=== PATIENT | male | born 1980 | race Two or more races ===

== ENCOUNTER 2016-09-14 22:07 | Observation (INO) | payer SELFPAY ==
[2016-09-14 22:17] VITALS: RESP 18; TEMP 97.8
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
[2016-09-14] MEDS ORDERED: Multivitamin (MVI) 10 ML, Thiamine 100 MG, Folic Acid 1 MG in Sodium Chloride 0.9% 1,00... IV ONE (22:48)
[2016-09-14] MEDS ORDERED: DiphenhydrAMINE 50 mg/ml Inj ONE (23:03)
[2016-09-15 01:29] LABS: BASO # 0.02 K/mm3 (0.0-2.0); BASO % 0.2 % (0.0-3.0); EOS # 0.2 (0.0-0.7); EOS % 1.8 % (1.5-5.0); GRAN # 6.28 (1.4-6.5); GRAN % 72.6 % (50.0-68.0); LYMPH # 1.8 (1.2-3.4); LYMPH % 20.6 % (22.0-35.0); MEAN CELL VOLUME 87.6 fL (80.0-105.0); MEAN CORPUSCULAR HEMOGLOBIN 32.6 pg (25.0-35.0); MEAN CORPUSCULAR HGB CONC 37.2 g/dl (31.0-37.0); MEAN PLATELET VOLUME 8.9 fl (7.0-11.0); MONO # 0.4 (0.1-0.6); MONO % 4.8 % (1.0-6.0); PLATELET COUNT 229 10^3/uL (120.0-450.0); RBC 4.91 10^6/uL (3.5-6.1); RED CELL DISTRIBUTION WIDTH 11.6 % (11.5-14.5); WHITE BLOOD COUNT 8.7 10^3/ul (4.5-11.0)
[2016-09-15] MEDS ORDERED: TDAP Vaccine 0.5 mL Syr IM ONE (01:32)
[2016-09-15 01:46] LABS: ALB/GLOB RATIO 1.3 (1.1-1.8); ALBUMIN 4.9 g/dL (3.0-4.8); ALT/SGPT 36 U/L (7-56); AST/SGOT 60 U/L (15-59); BLOOD UREA NITROGEN 13 mg/dL (7-21); CALCIUM 9.4 mg/dL (8.4-10.5); GFR AFRICAN-AMERICAN > 60; GFR NON-AFRICAN AMERICAN > 60; MAGNESIUM 2.2 mg/dL (1.7-2.2)
--- NOTE | 2016-09-15 03:48 | CT ---
EXAM: CT Head Without Intravenous Contrast CLINICAL HISTORY: 34 years old, male; Screening exam; Additional info: Medical clearance TECHNIQUE: Axial computed tomography images of the head/brain without intravenous contrast. This CT exam was performed using one or more of the following dose reduction techniques: automated exposure control, adjustment of the mA and/or kV according to patient size, and/or use of iterative reconstruction technique. EXAM DATE/TIME: 09/14/2016 10:47 PM COMPARISON: No relevant prior studies available. FINDINGS: No intracranial hemorrhage. No intracranial edema. No evidence of infarct. Mucosal thickening of the ethmoid sinuses and right sphenoid sinus. Clinical correlation is recommended with regards to signs/symptoms of sinusitis. IMPRESSION: No acute intracranial findings.
[2016-09-15 07:19] VITALS: BP 132/74; PULSE 88; O2SAT 100
== END 2016-09-15 06:10 | disposition home or self-care (01) ==
LOC: ED 22:07 → EROBSV 09-15 02:06 → EDBD 09-15 02:06
PROVIDERS: ADMIT Emergency Medicine; ATTEND Emergency Medicine
DX: R45.1 Restlessness and agitation (principal); F10.129 Alcohol abuse with intoxication, unspecified; Y90.5 Blood alcohol level of 100-119 mg/100 ml; Z23 Encounter for immunization
CPT/HCPCS: 70450; 80053; 83735; 85025; 90471; 90715; 96372; 99282; G0378; G0480; J1200; J1630; J2060; J3486